=== PATIENT | female | born 1990 | race Caucasian/White ===

== ENCOUNTER 2018-01-12 13:37 | Outpatient (CLI) | payer SELFPAY ==
[2018-01-12 14:22] LABS: HCT 36.1 % (36.0-46.0); HGB 12.5 g/dL (12.0-15.5); Mean Corp. HGB Concentration 34.6 g/dL (32.0-36.0); Mean Corpuscular Hemoglobin 29.1 pg (27.0-33.0); Mean Corpuscular Volume 84.1 fL (80-95); Mean Platelet Volume 9.4 fL (8.0-11.0); Platelet Count 344 x1000/uL (130-400); RBC 4.29 m/cumm (4.00-5.20); RBC Distribution Width 12.7 % (11.7-14.6); White Blood Cell Count 14.83 k/cumm (4.4-10.8)
[2018-01-12 15:03] LABS: ALT 15 U/L (12-78); AST 16 U/L (15-37); Albumin 3.8 g/dL (3.4-5.0); Alkaline Phosphatase 66 U/L (46-116); Anion Gap 11.3 mmol/L (3-11); BUN 7 mg/dL (7-18); Bilirubin, Total 0.4 mg/dL (0.2-1.0); CO2 23.7 mmol/L (21.0-32.0); CREATININE 0.71 mg/dL (0.55-1.02); Calcium 8.9 mg/dL (8.5-10.1); Chloride 101 mmol/L (98-107); Glucose 88 mg/dL (70-100); Potassium 3.8 mmol/L (3.5-5.1); Sodium 136 mmol/L (136-145); Total Protein 6.8 g/dL (6.4-8.2)
== END 2018-01-12 13:57 ==
PROVIDERS: Visit Provider Nurse Practitioner Women's Health
DX: O21.9 Vomiting of pregnancy, unspecified (principal)
CPT/HCPCS: 36415; 80053; 85027; 84702

== ENCOUNTER 2018-02-13 15:05 | Outpatient (CLI) | payer OTHER, SELFPAY ==
[2018-02-13 15:39] LABS: Abs Immature Grans 0.05 k/cumm (0.0-0.09); Absolute Eosinophil Count 0.09 k/cumm (0.0-0.7); Absolute Monocyte Count 0.75 k/cumm (0.11-0.7); Absolute Neutrophil Count 12.65 k/cumm (1.2-6.7); Basophils % 0.3; Eosinophils % 0.6; HCT 33.8 % (36.0-46.0); Immature Grans % 0.3; Lymphocytes % 13.3; Mean Corp. HGB Concentration 35.5 g/dL (32.0-36.0); Mean Corpuscular Hemoglobin 29.5 pg (27.0-33.0); Mean Platelet Volume 9.2 fL (8.0-11.0); Monocytes % 4.8; Neutrophils % 80.7; Platelet Count 333 x1000/uL (130-400); RBC 4.07 m/cumm (4.00-5.20); RBC Distribution Width 12.9 % (11.7-14.6); White Blood Cell Count 15.67 k/cumm (4.4-10.8)
[2018-02-13 15:53] LABS: Absolute Basophil Count 0.05 k/cumm (0.0-0.2); Absolute Lymphocyte Count 2.08 k/cumm (1.2-3.4)
[2018-02-13 17:07] LABS: TSH (W/Ref FT4) 1.84 uIU/mL (0.358-3.74)
[2018-02-14 11:46] LABS: Hepatitis B Surface Ag Negative (NEGAT); Hepatitis C Ab w Rflx HCV PCR Negative (NEGAT)
[2018-02-14 11:48] LABS: HIV-1/2 Ag & Ab Screen Negative (NEGAT)
[2018-02-14 13:23] LABS: Rubella IgG Ab (UVM) Positive; Varicella IgG Antibody Positive
[2018-02-14 13:55] LABS: Syphilis Serology (RPR) Negative (Negative)
[2018-02-14 15:19] LABS: Toxoplasma Ab, IgG Negative (Negative); Toxoplasma Ab, IgM Negative (Negative); Toxoplasma IgG Value <3 IU/mL
== END 2018-02-13 15:25 ==
PROVIDERS: Visit Provider Advanced Practice Midwife
DX: Z34.91 Encounter for supervision of normal pregnancy, unspecified, first trimester (principal); Z11.3 Encounter for screening for infections with a predominantly sexual mode of transmission; Z11.59 Encounter for screening for other viral diseases; Z11.4 Encounter for screening for human immunodeficiency virus [HIV]; Z01.84 Encounter for antibody response examination
CPT/HCPCS: 36415; 80055; 80307; 86787; 86803; 86850; 86900; 86901; 87340; 87389; 87491; 87591; 84443; 86592; 86762; 86777; 86778; 87086

== ENCOUNTER 2018-02-13 17:07 | Outpatient (REF) | payer OTHER, SELFPAY ==
--- NOTE | 2018-02-13 14:45 | PAPFT_PTH ---
PATIENT: Alma Hernandez LOC: [facility] U#:[id number] AGE/SX: 27/F ROOM: RE02/13/[address]: Alonso Frost RN : 1990 BED: DIS: 02/13/2018 SPEC #: [id number] RECD: 02/13/18 17:58 STATUS: AMIRA REQ #: [id number] JARROD: 02/13/18 14:[address]: Alonso Frost DEPT: [facility] Cytology RECD BY: Jayshree Polo ENTERED: 02/13/18 17:58 SP TYPE: PAPFT OT DR: Phylicia Local Tissues: 1 - CX/ENDOCX FOR PAP SMEARS Procedures: PAP THIN PREP/UVM Screening HPV DNA PROBE Comments: [id number]
[2018-02-13 17:42] LABS: *AMPHETAMINES SCREEN URINE Negative (Negative); *BARBITURATES SCREEN URINE Negative (Negative); *BENZODIAZEPINES SCREEN URINE Negative (Negative); Cannabinoids THC Negative (Negative); Cocaine Screen,Urine Negative (Negative); METHADONE URINE SCREEN Negative (Negative); OPIATES URINE SCREEN Negative (Negative)
[2018-02-13 17:51] LABS: Tricyclic Antidepressants Negative (Negative)
[2018-02-15 13:57] LABS: Chlamydia Result Negative; GC Result Negative; Specimen Description CERVIX
[2018-02-17 08:11] LABS: Buprenorphine Negative; Norbuprenorphine Negative
== END 2018-02-13 17:27 ==
LOC: LBN 17:07
PROVIDERS: Visit Provider Advanced Practice Midwife
DX: Z34.91 Encounter for supervision of normal pregnancy, unspecified, first trimester (principal); Z11.3 Encounter for screening for infections with a predominantly sexual mode of transmission; Z12.4 Encounter for screening for malignant neoplasm of cervix; Z11.51 Encounter for screening for human papillomavirus (HPV)
CPT/HCPCS: 80307; 87491; 87591; 88142; 87086; 87624

== ENCOUNTER 2018-02-19 00:39 | Outpatient (CLI) | payer SELFPAY ==
--- NOTE | 2018-02-19 15:34 | DI.US_ITS ---
Many abnormalities cannot be diagnosed. A normal exam does not exclude a congenital anomaly. Radiology No. LMP: Exam Date: 02/19/18 [facility] wks days on EDC ([facility]) 08/18/18 Confirmed: HISTORY: DATING, Z34.90 ---- PREDICTED GESTATIONAL AGE NUMBER 14.2 weeks with a range of 13.2 week to 15.2 weeks. 1 Determined by___1STUS___LMP___HISTORY Info. pertaining to fetus # PLACENTA PRESENTATION Grade 0-1 Cephalic___ Anterior___Posterior___ Breech____ Right Left Transverse(head right___ Fundal___Low-lying___Previa___ Transverse(head left___ Varying___X___ BIOMETRY AMNIOTIC FLUID BPD: 27 mm 14.6 weeks Normal HC: 104 mm 14.6 weeks AC: 88 mm 15.0 weeks FL: 16 mm 14.5 weeks AMNIOTIC FLUID INDEX >26 WK CRL: mm weeks Cisterna Magna: mm CI: RUQ: LUQ Cerebellum: cm EFW: grams Percentile RLQ: LLQ Total: cms Composite AGE= 14.6 wks EDC by ____08/14/2018 BIOPHYSICAL PROFILE ANATOMY IDENTIFIED SCORE 0/2 Heart: 4-Chamber___Rate:BPM__165___ LVOT: RVOT: Amniotic Fluid(>2cms)____ Stomach: Kidneys: Respirations (>30 secs) Bladder: Post. Fossa: Body Flex/Extension 3 vessel cord: Ventricles: cord insertion: Lips:____ Extremity Flex/Extension spinal morphology: Nose: Total Score= Palate: NS=not seen There is a single intrauterine gestation in variable position. The placenta is posterior. The biometric measurements correspond to 14 weeks 6 days. There is a normal quantity of amniotic fluid. IMPRESSION: Living intrauterine gestation of 14 weeks 6 days.
== END 2018-02-19 00:59 ==
PROVIDERS: Visit Provider Advanced Practice Midwife
DX: Z34.91 Encounter for supervision of normal pregnancy, unspecified, first trimester (principal)
CPT/HCPCS: 76801

== ENCOUNTER 2018-03-30 00:21 | Outpatient (CLI) | payer SELFPAY ==
--- NOTE | 2018-03-30 13:42 | DI.US_ITS ---
SYMPTOM/DIAGNOSIS: 18 WK ULTRASOUND, Z34.90 OB ULTRASOUND: Routine examination was performed. There is a single living intrauterine gestation. Estimated sonographic age is 19 weeks 6 days. No or placental abnormalities are identified. IMPRESSION: Single living intrauterine gestation. Estimated sonographic age is 19 weeks 6 days. Many abnormalities cannot be diagnosed. A normal exam does not exclude a congenital anomaly. Radiology No. [id number] LMP: Exam Date: 03/30/18 [facility] wks days on EDC ([facility]) 08/17/18 Confirmed: HISTORY: SURVEY ---- PREDICTED GESTATIONAL AGE NUMBER 20 +0 weeks with a range of 19 +0 week to 21 +0 weeks. 1 Determined by_XX__1STUS___LMP___HISTORY Info. pertaining to fetus # PLACENTA PRESENTATION Grade 1 Cephalic___ Anterior___Posterior__XX_ Breech____ Right Left Transverse(head right___ Fundal___Low-lying___Previa___ Transverse(head left___ Varying__X____ BIOMETRY AMNIOTIC FLUID BPD: 47 mm 20 +1 weeks Normal HC: 175 mm 20 +0 weeks AC: 142 mm 19 +4 weeks FL: 32 mm 19 +6 weeks AMNIOTIC FLUID INDEX >26 WK CRL: mm weeks Cisterna Magna: 4 mm CI: 83.6 RUQ: LUQ Cerebellum: 2.0 cm EFW: 309 grams Percentile RLQ: LLQ Total: cms Composite AGE= 19 +6 wks EDC by US___08/18/18 BIOPHYSICAL PROFILE ANATOMY IDENTIFIED SCORE 0/2 Heart: 4-Chamber__X_Rate:BPM__152___ LVOT: X RVOT:___X Amniotic Fluid(>2cms)____ Stomach:___X____ Kidneys:___X____ Respirations (>30 secs) Bladder: X___ Post. Fossa:___X Body Flex/Extension 3 vessel cord:__X Ventricles:____X cord insertion:__X___ Lips:__X__ Extremity Flex/Extension spinal morphology:__X Nose:X Total Score= Palate:_X NS=not seen
== END 2018-03-30 00:41 ==
PROVIDERS: Visit Provider Nurse Practitioner
DX: Z34.92 Encounter for supervision of normal pregnancy, unspecified, second trimester (principal)
CPT/HCPCS: 76805

== ENCOUNTER 2018-05-31 14:56 | Outpatient (CLI) | payer OTHER, SELFPAY ==
[2018-05-31 15:21] LABS: HCT 33.2 % (36.0-46.0); HGB 11.3 g/dL (12.0-15.5); Mean Corpuscular Hemoglobin 29.9 pg (27.0-33.0); Mean Corpuscular Volume 87.8 fL (80-95); Mean Platelet Volume 9.1 fL (8.0-11.0); Platelet Count 345 x1000/uL (130-400); RBC 3.78 m/cumm (4.00-5.20); RBC Distribution Width 13.2 % (11.7-14.6); White Blood Cell Count 18.49 k/cumm (4.4-10.8)
[2018-05-31 15:27] LABS: Glucose,1 Hr (Glucola) 179 mg/dL (80-140)
== END 2018-05-31 15:16 ==
PROVIDERS: Visit Provider Advanced Practice Midwife
DX: Z34.93 Encounter for supervision of normal pregnancy, unspecified, third trimester (principal)
CPT/HCPCS: 36415; 82950; 85027

== ENCOUNTER 2018-06-04 00:38 | Outpatient (CLI) | payer OTHER, SELFPAY ==
--- NOTE | 2018-06-04 13:29 | DI.US_ITS ---
Many abnormalities cannot be diagnosed. A normal exam does not exclude a congenital anomaly. Radiology No. LMP: Exam Date: 06/04/18 [facility] 14 wks 2 days on 02/19/18 EDC ([facility]) 08/18/18 Confirmed: HISTORY: SIZE LESS THAN DATES, POSTCOITAL BLEEDING, VISUALIZE PLACENTA, O2.849 PREDICTED GESTATIONAL AGE NUMBER 29.3 weeks with a range of 28.3 week to 30.3weeks. 1 Determined by_X__1STUS___LMP___HISTORY Info. pertaining to fetus # PLACENTA PRESENTATION Grade I-11 Cephalic__X_ Anterior___Posterior_X__ Breech____ Right Left Transverse(head right___ Fundal___Low-lying___Previa___ Transverse(head left___ Varying BIOMETRY AMNIOTIC FLUID BPD: 73 mm 29.2 weeks Normal HC: 278 mm 30.2 weeks AC: 299 mm 29.1 weeks FL: 54 mm 28.5 weeks AMNIOTIC FLUID INDEX >26 WK CRL: mm weeks Cisterna Magna: mm CI: RUQ: LUQ Cerebellum: cm EFW: 1341 grams 31st Percentile RLQ: LLQ Total: cms Composite AGE= 29.3 wks EDC by 08/17/18____ BIOPHYSICAL PROFILE ANATOMY IDENTIFIED SCORE 0/2 Heart: 4-Chamber_X__Rate:BPM__147___ LVOT: RVOT: Amniotic Fluid(>2cms)____ Stomach: Kidneys: Respirations (>30 secs) Bladder: Post. Fossa: Body Flex/Extension 3 vessel cord:__X Ventricles: cord insertion: Lips:____ Extremity Flex/Extension spinal morphology: Nose: Total Score= Palate: NS=not seen The placenta is posterior. The fetus is in the cephalic position. The biometric measurements correspond to 29 weeks 3 days. The estimated weight is 1341 grams corresponding to the 31st percentile. The amniotic fluid amount appears normal at 12.1. IMPRESSION: size and weight are within the expected range.
== END 2018-06-04 00:58 ==
PROVIDERS: Visit Provider Advanced Practice Midwife
DX: O26.843 Uterine size-date discrepancy, third trimester (principal); N93.0 Postcoital and contact bleeding; Z34.93 Encounter for supervision of normal pregnancy, unspecified, third trimester
CPT/HCPCS: 76816

== ENCOUNTER 2018-06-04 08:22 | Outpatient (CLI) | payer OTHER, SELFPAY ==
[2018-06-04 10:26] LABS: Glucose 1 Hour 162 mg/dL
[2018-06-04 12:51] LABS: Glucose 3 Hour 92 mg/dL
== END 2018-06-04 08:42 ==
PROVIDERS: Visit Provider Advanced Practice Midwife
DX: Z34.93 Encounter for supervision of normal pregnancy, unspecified, third trimester (principal)
CPT/HCPCS: 36410; 82951

== ENCOUNTER 2018-06-14 14:51 | Outpatient (REF) | payer OTHER, SELFPAY ==
[2018-06-18 13:56] LABS: Chlamydia Result Negative; GC Result Negative; Specimen Description URINE
== END 2018-06-14 15:11 ==
LOC: LBN 14:51
PROVIDERS: Visit Provider Advanced Practice Midwife
DX: Z34.93 Encounter for supervision of normal pregnancy, unspecified, third trimester (principal); Z11.3 Encounter for screening for infections with a predominantly sexual mode of transmission
CPT/HCPCS: 87491; 87591

== ENCOUNTER 2018-06-27 11:04 | Outpatient (CLI) | payer OTHER, SELFPAY | END 2018-06-27 11:24 | PROVIDERS: Visit Provider Advanced Practice Midwife | DX: N89.8 Other specified noninflammatory disorders of vagina (principal) | CPT/HCPCS: 87480; 87510; 87660 ==

== ENCOUNTER 2018-06-27 14:44 | Outpatient (REF) | payer OTHER, SELFPAY | END 2018-06-27 15:04 | LOC: LBN 14:44 | PROVIDERS: Visit Provider Advanced Practice Midwife | DX: N89.8 Other specified noninflammatory disorders of vagina (principal) | CPT/HCPCS: 87480; 87510; 87660 ==

== ENCOUNTER 2018-07-20 11:48 | Inpatient (IN) | payer OTHER, SELFPAY ==
[2018-07-20 14:51] LABS: HCT 32.9 % (36.0-46.0); HGB 11.5 g/dL (12.0-15.5); Mean Corpuscular Hemoglobin 29.8 pg (27.0-33.0); Mean Corpuscular Volume 85.2 fL (80-95); Mean Platelet Volume 9.5 fL (8.0-11.0); Platelet Count 349 x1000/uL (130-400); RBC 3.86 m/cumm (4.00-5.20); RBC Distribution Width 12.7 % (11.7-14.6); White Blood Cell Count 21.09 k/cumm (4.4-10.8)
[2018-07-20] MEDS: Lactated Ringers 1,000 ML 150 ML IV ×2 (15:55→22:26)
[2018-07-21] MEDS: Oxytocin 10 UNITS/ML VIAL IM (05:30)
[2018-07-21] MEDS: Hamamelis Leaf/Glycerin 100 EACH BOX PR (08:19)
[2018-07-21] MEDS: Ibuprofen 600 MG TAB PO (20:06)
[2018-07-22 06:39] LABS: HCT 28.3 % (36.0-46.0); HGB 9.7 g/dL (12.0-15.5); Mean Corp. HGB Concentration 34.3 g/dL (32.0-36.0); Mean Corpuscular Hemoglobin 29.5 pg (27.0-33.0); Mean Platelet Volume 9.7 fL (8.0-11.0); Platelet Count 294 x1000/uL (130-400); RBC 3.29 m/cumm (4.00-5.20); RBC Distribution Width 12.9 % (11.7-14.6); White Blood Cell Count 20.63 k/cumm (4.4-10.8)
[2018-07-22] MEDS: Ibuprofen 600 MG TAB PO (12:09)
[2018-07-22 18:31] LABS: Absolute Basophil Count 0.06 k/cumm (0.0-0.2); Absolute Eosinophil Count 0.27 k/cumm (0.0-0.7); Absolute Lymphocyte Count 2.99 k/cumm (1.2-3.4); Absolute Monocyte Count 1.13 k/cumm (0.11-0.7); Absolute Neutrophil Count 14.88 k/cumm (1.2-6.7); Basophils % 0.3; Eosinophils % 1.4; HCT 29.7 % (36.0-46.0); Lymphocytes % 15.3; Mean Corp. HGB Concentration 33.7 g/dL (32.0-36.0); Mean Corpuscular Hemoglobin 29.4 pg (27.0-33.0); Mean Corpuscular Volume 87.4 fL (80-95); Mean Platelet Volume 9.5 fL (8.0-11.0); Monocytes % 5.8; Neutrophils % 76.2; Platelet Count 331 x1000/uL (130-400); White Blood Cell Count 19.53 k/cumm (4.4-10.8)
[2018-07-23] MEDS: Docusate Sodium 100 MG CAP PO (17:47)
--- NOTE | 2018-07-23 18:33 | PDOC.CMPRO ---
- If Service Date Differs Date of service: 07/23/18 Time of Service: 18:34 Care Management Progress Note Background and assessment: Alma is a 28 year old female admitted to OB Para 1, 2 days . CM is called to the OB unit to complete a safety plan after mental health evaluation for suicidal ideation. Per report Pt expressed thought of suicidal ideation today to multiple providers. Pt has met with Nellie HOOD today and at previous visits. Per Nellie's note Pt has a history of unspecified depressive disorder, with symptoms of anxiety. Primary providers are concerned for Alma safety and called a huddle to discuss a safety plan and implementation of CPSO. CM requested [facility] assessment through crisis services to determine if patient is in need of psychiatric stabilization prior to discharge home with spouse and infant. Huddle participants include: Krystal Hobbs [facility] Elly Abrams CNM, Vangie Pham RN, DAVION Garcia, Aleyda Butler RN supervisor microfilm duplicating unit, SANA Medeiros and this typewriter assembly and parts inspector. CM also contacted Sabi Rodriguez RN Care Manager, Risk Management who was able to participate over the phone. Mental Health [facility] has met with patient and does not recommend inpatient treatment at this time. Team feels that the patient would be best supported with a one on one CPSO at all times. The team agrees including risk management that disturbing the environment and interrupting the natural bonding of family would not be supportive. Decision was made to implement a CPSO with direct supervision present at all times. The team has determined this safety intervention would benefit the patient and family as a whole and maintain the bonding of patient and family. [facility] will plan to follow up with the patient in the morning states she will be here at 0830. Nellie Murillo will also continue to support the patient while she remains as a patient and as an outpatient. CM to contacted to follow up with Elly Gomez CNM f/u will include med recommendations and management as well as assessment. CM contacted by email and will request that JOSE place a consult in EMR to also notify physician of consult. Patient will have direct observation at all times by Female CPSO this includes when using the bathroom or showering. Equipment Service Associate will maintain the CPSO coverage throughout the evening and night. Alma will not be alone at anytime during her stay. Alma and her Spouse Reji aware of the safety plan being put in place and agree to the plan. Additional resources recommended include [facility] through Home Health which patient has agreed, to place a referral at the time of discharge. These orders should be faxed to [facility]. also faxed a referral to home health requesting support services through the program. SAFETY PLAN: 1.Alma may remain in her own clothing or hospital gown. 2. Will remain under direct supervision of CPSO trained HAND TACKER, PRETZEL COOKER certified solid waste facility operator at all times. 3. May have regular dishes and meal tray with CPSO observation at all times. 4. Follow [facility] Management of the Admitted Behavioral Health Patient policy. 5. Alma may shower and use the bathroom with direct supervision with CPSO or spouse at all times. 6. Alma may have her belongings in the room with no restrictions. 7. Visitors are patients discretion. 8. Phone contact is not limited. Safety plan has been established with patient, and care team, to adhere to patient goals, identify restrictions based on behavioral status, address nutrition, and determine allowed personal belongings, tools for hygiene and personal care. As well plan will determine level of activity including ambulation, level of supervision, visitors, and determine privileges based on level of acuity. In the event changes are needed in the plan please contact security operations specialist [facility] Care Management and Crisis [facility] at [phone].
--- NOTE | 2018-07-23 19:36 | CMPROGNOTE_ITS ---
- If Service Date Differs Date of service: 07/23/18 Time of Service: 18:34 Care Management Progress Note Background and assessment: Alma is a 28 year old female admitted to OB Para 1, 2 days . CM is called to the OB unit to complete a safety plan after mental health evaluation for suicidal ideation. Per report Pt expressed thought of suicidal ideation today to multiple providers. Pt has met with Nellie HOOD today and at previous visits. Per Nellie's note Pt has a history of unspecified depressive disorder, with symptoms of anxiety. Primary providers are concerned for Alma safety and called a huddle to discuss a safety plan and implementation of CPSO. CM requested [facility] assessment through crisis services to determine if patient is in need of psychiatric stabilization prior to discharge home with spouse and infant. Huddle participants include: Krystal Hobbs [facility] Elly Abrams CNM, Vangie Pham RN, DAVION Garcia, Aleyda Butler RN right of way supervisor, SANA Medeiros and this health underwriter. CM also contacted Sabi Rodriguez RN Care Manager, Risk Management who was able to participate over the phone. Mental Health [facility] has met with patient and does not recommend inpatient treatment at this time. Team feels that the patient would be best supported with a one on one CPSO at all times. The team agrees including risk management that disturbing the environment and interrupting the natural bonding of family would not be supportive. Decision was made to implement a CPSO with direct supervision present at all times. The team has determined this safety intervention would benefit the patient and family as a whole and maintain the bonding of patient an d family. [facility] will plan to follow up with the patient in the morning states she will be here at 0830. Nellie Murillo will also continue to support the patient while she remains as a patient and as an outpatient. CM to contacted to follow up with Elly Gomez CNM f/u will include med recommendations and management as well as assessment. CM contacted by email and will request that JOSE place a consult in EMR to also notify physician of consult. Patient will have direct observation at all times by Female CPSO this includes when using the bathroom or showering. Professor Of Forestry will maintain the CPSO coverage throughout the evening and night. Alma will not be alone at anytime during her stay. Alma and her Spouse Reji aware of the safety plan being put in place and agree to the plan. Additional resources recommended include [facility] through Home Health which patient has agreed, to place a referral at the time of infant discharge. These orders should be faxed to [facility]. also faxed a referral to home health requesting support services through the program. SAFETY PLAN: 1.Alma may remain in her own clothing or hospital gown. 2. Will remain under direct supervision of CPSO trained CURTAIN STITCHER, IMPORTER OR EXPORTER mellowing machine operator at all times. 3. May have regular dishes and meal tray with CPSO observation at all times. 4. Follow [facility] Management of the Admitted Behavioral Health Patient policy. 5. Alma may shower and use the bathroom with direct supervision with CPSO or spouse at all times. 6. Alma may have her belongings in the room with no restrictions. 7. Visitors are patients discretion. 8. Phone contact is not limited. Safety plan has been established with patient, and care team, to adhere to patient goals, identify restrictions based on behavioral status, address nutrition, and determine allowed personal belongings, tools for hygiene and personal care. As well plan will determine level of activity including ambulation, level of supervision, visitors, and determine privileges based on level of acuity. In the event changes are needed in the plan please contact acquisition associate [facility] Care Management and Crisis [facility] at [phone].
[2018-07-24] MEDS: Ibuprofen 600 MG TAB PO (06:07)
--- NOTE | 2018-07-24 09:55 | PDOC.MHCN ---
Date of service: 07/23/18 Time of Service: 17:56 Mental Health Crisis Note Presenting Issue How did you arrive at the ED and why did you come: Patient gave to her child 2 days ago and was born one month prematurely. Patient remains in the center with her son. Today, patient commented that she had thoughts of going into the bathroom and ending her life by hanging herself. The center social worker psychiatric contacts [facility] emergency services and requests an evaluation of patient. Precipitating Factors Patient admits to feeling overwhelmed and unprepared to bring her son home due to his being born earlier than expected. She admits to having made the suicidal comment and states that the thoughts come and go. She denies that she would act on the thoughts. Patient moved from [place] to the [facility] with her in December of 2016. She talks about the plan for them to move back to [place] in a couple of years. Disposition BEHAVIOR: Pleasant and cooperative. EYE CONTACT: Good. MOOD: Depressed. AFFECT: Flat. APPETITE: Good. SLEEP(trouble falling/staying asleep: Reported as good. Plan A huddle is held with center staff. Even though we will not be pursuing a psych hospitalization at this time, the decision is made to place a CPSO in the room through the night. Staff will arrange for Dr. Elisabet Hunter, psychiatrist, to meet with patient tomorrow to explore anti-depressant medication options. I will also check-in with patient in the morning to ensure she is maintaining. Signature Clinician's Name/Title: Krystal Lamas BA, [facility] [employer]
--- NOTE | 2018-07-24 10:21 | PDOC.MHCN_ITS ---
Date of service: 07/23/18 Time of Service: 17:56 Mental Health Crisis Note Presenting Issue How did you arrive at the ED and why did you come: Patient gave to her child 2 days ago and was born one month prematurely. Patient remains in the center with her son. Today, patient commented that she had thoughts of going into the bathroom and ending her life by hanging herself. The center social service agency director contacts [facility] emergency services and requests an evaluation of patient. Precipitating Factors Patient admits to feeling overwhelmed and unprepared to bring her son home due to his being born earlier than expected. She admits to having made the suicidal comment and states that the thoughts come and go. She denies that she would act on the thoughts. Patient moved from [place] to the [facility] with her in December of 2016. She talks about the plan for them to move back to [place] in a couple of years. Disposition BEHAVIOR: Pleasant and cooperative. EYE CONTACT: Good. MOOD: Depressed. AFFECT: Flat. APPETITE: Good. SLEEP(trouble falling/staying asleep: Reported as good. Plan A huddle is held with center staff. Even though we will not be pursuing a psych hospitalization at this time, the decision is made to place a CPSO in the room through the night. Staff will arrange for Dr. Elisabet Hunter, psychiatrist, to meet with patient tomorrow to explore anti-depressant medication options. I will also check-in with patient in the morning to ensure she is maintaining. Signature Clinician's Name/Title: Krystal Lamas BA, [facility] Motel Operator
--- NOTE | 2018-07-24 10:59 | PDOC.MHPN2 ---
Date of service: 07/24/18 Time of Service: 10:59 Mental Health Progress Note Progress Note: Presenting Issue: Patient remains at the center. This bond writer meets with patient today for a reassessment to ensure patient is maintaining. Precipitating Factors: Patient was assessed yesterday after making a suicidal statement and threatening to hang herself in the bathroom. Today, patient's mood is brighter. She reports doing better and denies current suicidal ideation. She continues to feel overwhelmed by the of her son and difficulties breast feeding but states she is looking forward to returning home with her son and . Patient's reports that she spoke with a cousin from [place] earlier today and this always cheers her up. Disposition * Behavior: Cooperative. *Eye Contact: Good. *Mood: Depressed. *Affect: Flat, guarded but may be due to cultural differences and language barriers, as patient is Malay and speaks limited Japanese. *Appetite: Good. *Sleep(troubel falling/staying asleep): Reports sleeping well last night. Plan(please elaborate and include that physician is consulted with plan and/or placement): Patient and her are provided with contact information for [facility] emergency services. Plan is for patient to meet with Dr. Elisabet Hunter, psychiatrist, this morning to explore medication options. Patient does not meet criteria for psychiatric hospitalization at this time. Clinician's Name , Title, and Signature Make sure that you are photocopying and submitting this to [facility] records Dept. to be scanned into chart.
--- NOTE | 2018-07-24 11:12 | MHPN_ITS ---
Date of service: 07/24/18 Time of Service: 10:59 Mental Health Progress Note Progress Note: Presenting Issue: Patient remains at the center. This principal technical writer meets with patient today for a reassessment to ensure patient is maintaining. Precipitating Factors: Patient was assessed yesterday after making a suicidal statement and threatening to hang herself in the bathroom. Today, patient's mood is brighter. She reports doing better and denies current suicidal ideation. She continues to feel overwhelmed by the of her son and difficulties breast feeding but states she is looking forward to returning home with her son and . Patient's reports that she spoke with a cousin from [place] earlier today and this always cheers her up. Disposition * Behavior: Cooperative. *Eye Contact: Good. *Mood: Depressed. *Affect: Flat, guarded but may be due to cultural differences and language barriers, as patient is Turkish and speaks limited Belarusian. *Appetite: Good. *Sleep(troubel falling/staying asleep): Reports sleeping well last night. Plan(please elaborate and include that physician is consulted with plan and/or placement): Patient and her are provided with contact information for [facility] emergency services. Plan is for patient to meet with Dr. Elisabet Hunter, psychiatrist, this morning to explore medication options. Patient does not meet criteria for psychiatric hospitalization at this time. Clinician's Name , Title, and Signature Make sure that you are photocopying and submitting this to [facility] records Dept. to be scanned into chart.
--- NOTE | 2018-07-24 13:14 | PSYCO_ITS ---
Date of service: 07/24/18 Time of Service: 12:14 History of Present Illness Narrative: Primary Care Provider: [facility] Referred by: Elly Gomez CNM Information source: Patient, chart, medical team. Reason for consult: Elly requested psychiatric consultation to evaluate for depression after crisis evaluated her for suicidal ideation and cleared her for returning home. History Of Present Illness: Patient is post day 4 with new boy born at 36 weeks. She expressed suicidal ideations and [facility] crisis and [facility] Care management were involved for evaluation of safety. After overnight direct observation by a sitter and second visit from Crisis, she was deemed not to be a risk to harm herself or others and this consultation was requested for further evaluation of depression. , Reji and baby Romeo were present in the room for this visit and this in terview was frequently interrupted with the normal needs of attending to the new baby and staff coming and going. Mood: Depressed reports being depressed all my life. Says 50 percent of the time she can feel maral and pleasure and the other time she feels sad and depressed. patient not able to say today the circumstances that trigger low mood. Currently her mood is not as depressed as her worst depressive state, nor is her mood the best it could be. She does not endorse any history of me dication for depression. Anxiety: She endorses being a worrier most of her life. She endorses physical symptoms of muscle tension, stomach aches, and feeling shaky when anxious. She says depression is more bothersome, more of a problem than anxiety. Psychosis/perceptual disturbances: she denies auditory or visual hallucinations, intrusive thoughts or bizarre thoughts. Sleep: Fine Substances: not reviewed this visit. Safety: - current suicidal/homicidal/violent ideations: none right now, recently felt suicidal prompting crisis evaluation. - guns in home or access to weapons: none PAST PSYCHIATRIC HISTORY: treatment history was not reviewed at this visit Family History: - mother with depression on medications she has reason to be depressed - in [place] - father: MH history not reviewed. - brother 2 years younger: MH history unknown Social history: - grew up in [place] - to Reji an palestinian and lives with Reji and his senior high school son locally. 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 REVIEW OF SYSTEMS: Constitutional: +fatigue Cardiovascular: No chest pains or dizziness Respiratory: no cough or shortness of breath Musculoskeletal: no weakness or trouble walking GI: No constipation, diarrhea, nausea, vomiting; appetite is fine Genitourinary: No dysuria, frequency of urination, hematuria +pain post delivery Neurological: No weakness, seizures, numbness, tics, ataxia Psych: see above Endocrine: No cold or heat intolerance, polyuria, excessive thirst Hem/Lymph: No bruising, bleeding Allergies: see chart MENTAL STATUS EXAM: Constitutional: appears healthy, stated age, sitting up on bed pumping breast milk. good eye contact Attitude: cooperative Psychomotor: no retardation or agitation Speech: few words, minimal spontaneous speech - likely partly due to language barrier, quiet volume. Heavily accented speech consistent with [place] as first language. Associations: no looseness Thought process: linear, logical, goal directed Thought content without psychosis, delusions, obsessions No suicidal or homicidal ideations Hallucinations denied Mood: depressed Affect: more anxious than depressed, smiles, also near tears appropriately Attention/Concentration: intact Judgment/insight: appears fair/fair but language barrier contributing to difficulty assessing Oriented x 4 Language: belgian not fluent but functionally pretty accurate Fund of knowledge appropriate to age and education Memory intact to recent and remote events Other cognitive testing: none Assessment and Plan (1) Depression: Current visit: Yes Status: Acute Nithin Hernandez is a 28 year old female with past history of depressive disorder who is post day 4 and just cleared by Crisis team for safety after a night of observation by sitter due to patient's expression of suicidal ideation. Psychiatric consultation was requested for more in-depth evaluation of depression and possible role of medications in treatment. History and clinical exam gathered today thus far is consistent with generalized anxiety disorder and depressive disorder unspecified. There is a question of whether trauma is related to her presentation but patient did not seem comfortable enough for me to ask her more questions along this line today. I will try to continue to evaluate. Depressive symptoms do not seem solely related to post- and she does not endorse any symptoms of psychosis. She is quite reticent to speak today, was distracted by baby's needs and by breast milk pumping. Reji was invited to be part of the conversation as he attended to the baby as well but he participated minimally. Patient agreed for me to visit again tomorrow. Safety: no heightened concerns for her safety to self or others in this setting of the hospital. I agree with discontinuation of increased observations for safety as she clearly states she is not currently suicidal and has not intent to harm. I will continue to assess her mood and discuss treatment with her tomorrow. I verbally communicated my findings with SACHA Amato immediately after inte rview. Qualifiers: Active/Remission status: Depression Type: unspecified Major depression episode severity: Major depression recurrence: Psychotic features: Trimester: Qualified Code(s): F32.9 - Major depressive disorder, single episode, unspecified (2) Generalized anxiety disorder: Current visit: Yes Status: Acute PFSH Female Reproductive History Menstrual Duration of menses: 3-5 days control method: none History History 1 Para 0 Hx # Term Pregnancies 0 Multiple births 0 Hx # Pregnancies 0 Ectopic pregnancies 0 AB induced 0 Hx Number of Living Children 0 AB spontaneous 0 Results Labs : 07/22/18 18:10
--- NOTE | 2018-07-25 09:35 | PSYCO_ITS ---
Date of service: 07/25/18 Time of Service: 08:45 History of Present Illness Narrative: Events since initial consultation/last note: Overnight events: none Medications: none While her baby was having a car seat challenge, I was able to interview patient alone in the next room. Subjective: Mood: easily mad not always in proportion to situation. Often keeps mood in but sometimes it comes out. This morning was very irritated with who was so nice to me. Her irritability bothers her. today her mood is okay. Lack of sleep makes her irritability worse. Currently she is feeling joyful about her baby as well as burdened. I didn't want to become yet. I wanted to wait until we were back in [place]. Anxiety: +worries. Is concerned about going home and dealing with the messy house. She thinks she is close to being a perfectionist but not quite. She is not more so than prior to or coming to the [place]. Trauma/stressors: she reports parents three years ago and she had to testify in court, the truth being in favor of her mother. Now father mad at her. She thinks father is angry that she moved to [place] and that she got . She does not get along with father. Reports that he was mean to her growing up but never physically harmful. She has bad dreams involving her father recently, especially while . She is concerned about her 's faithfulness, believes he cheated on her but he says he did not. She is concerned her will cheat on her in the future, maybe leave her. She reports that he is mean to her sometimes but has never physically harmed her. She sometimes slaps him when he says mean things but never hard to leave a cedric. Her only social contacts here in the [place] are her in-laws, some of whom she says are mean. She denies intrusive thoughts or other nightmares. She endorses mild hype rarousal and hypervigilance symptoms. History of self-harm: denies ever having a suicide attempt but endorses self- harm by cutting when she was 14 years old. She currently is future oriented, denies any suicidal ideation last night or today. Psychiatric history: - never hospitalization - never psychotropic medications and does not want to take any now. She states, How about I just get home and see how things go. Because her mother was prescribed antidepressants and seemed to be different on them, she is afraid to try them herself. - has seen a psychologist as a child and again in recent years in [place] but didn't find it helpful. She is open to having a counselor in the [place] and also states friends and family in [place] are supportive. - REVIEW OF SYSTEMS: Constitutional: +fatigue related to reduced sleep Musculoskeletal/neuro: +feeling of swollen legs which cause some pain Psych: see above MENTAL STATUS EXAM: Constitutional: appears healthy, stated age, walking around in robe. Attitude: cooperative Psychomotor: no retardation or agitation Speech: non-pressured, normal volume and prosody. More spontaneous speech today when alone with me. No articulation problems noted. Associations: no looseness Thought process: linear, logical, goal directed Thought content without psychosis, delusions, obsessions No suicidal or homicidal ideations Hallucinations denied Mood: okay looking forward to going home Affect: full, anxious, can laugh, easily tearful appropriately around topic of father. Attention/Concentration: intact Judgment/insight: fair/fair Oriented x 4 Language appropriate to age and education Fund of knowledge appropriate to age and education Memory intact to recent and remote events Other cognitive testing: none Assessment and Plan (1) Generalized anxiety disorder: Current visit: Yes Status: Acute Alma Hernandez is a 28 year old female with past history of depressive disorder who is post day 4 and just cleared by Crisis team for safety after a night of observation by sitter due to patient's expression of suicidal ideation. Psychiatric consultation was requested for more in-depth evaluation of depression and possible role of medications in treatment. History and clinical exam are consistent still with Generalized Anxiety Disorder and depressive disorder unspecified. She has features of chronic stress but symptoms do not appear to meet criteria for Posttraumatic Stress Disorder. She does not appear to have symptoms specific for depression and she does not in fact appear depressed so much as anxious and stressed and at time sad about real life events. While she would possibly benefit from a trial of an SSRI to manage physical anxiety symptoms and irritable mood related to anxiety, she declines to try medication at this time, preferring to see how she feels once she returns home locally. I spent considerable time providing psychoeducation about depression and psychosis and symptoms to look for there, about trauma and the b jessie, and how daily relaxation can help calm the body, and that she should feel free to talk with her providers at [facility] and to her son's industrial arts public school teacher at [facility] if she has any concerns about worsening symptoms or reduced ability to cope at home. She expressed openness to continue to talk with behavioral health through [facility]. Recommendations: - no medication at this time per patient preference. Should she change her mind, I recommend that she trial sertraline 25mg daily x 6-8 doses then increase to 50mg daily and hold for 4 weeks. If tolerating well but still with mood and anxiety symptoms, then continue to titrate by 50mg up to as high as 150-200mg as necessary. - she has seen a provider at [facility] in the past (less than one year ago) for an ear infection but has not otherwise made a primary care connection. One treatment resource for her could be connecting with psychiatric nurse practitioner through that practice. - I recommend that she follow up with [facility] in one week to check on emotional functioning given the stressors between she and her and her risk for worsening mood and anxiety impacting care of the baby. Safety: she again denies any suicidal ideation, is future oriented, and expresses intent to follow up with treatment plans, thus she does not appear to be at heightened risk for self-harm or harm to others at this time. I verbally discussed my findings with the OB team immediately after interview and stated no barriers to discharge from a mental health standpoint. Please let me know if I can be of further assistance with Ms. Hernandez's care. (2) Depression: Current visit: Yes Status: Acute Qualifiers: Active/Remission status: Depression Type: unspecified Major depression episode severity: Major depression recurrence: Psychotic features: Trimester: Qualified Code(s): F32.9 - Major depressive disorder, single episode, unspecified PFSH Female Reproductive History Menstrual Duration of menses: 3-5 days control method: none History History 1 Para 0 Hx # Term Pregnancies 0 Multiple births 0 Hx # Pregnancies 0 Ectopic pregnancies 0 AB induced 0 Hx Number of Living Children 0 AB spontaneous 0 Results Labs : 07/22/18 18:10
== END 2018-07-25 15:30 | disposition home or self-care (01) | DRG 806 ==
PROVIDERS: Admitting Provider Advanced Practice Midwife; Visit Provider Advanced Practice Midwife
DX: O60.14X0 Preterm labor third trimester with preterm delivery third trimester, not applicable or unspecified (principal); R45.851 Suicidal ideations; Z37.0 Single live birth; O62.1 Secondary uterine inertia; Z3A.35 35 weeks gestation of pregnancy; O75.81 Maternal exhaustion complicating labor and delivery; O70.0 First degree perineal laceration during delivery; O99.345 Other mental disorders complicating the puerperium; F53.0 Postpartum depression; O90.6 Postpartum mood disturbance; F41.1 Generalized anxiety disorder; F32.9 Major depressive disorder, single episode, unspecified; Z63.0 Problems in relationship with spouse or partner; Z63.8 Other specified problems related to primary support group
CPT/HCPCS: 36415; 85027; 86850; 86900; 86901; 99253; 99254; 85025; 87081; G0378; J2540; J2590

== ENCOUNTER 2018-09-07 16:38 | Outpatient (REF) | payer OTHER, SELFPAY ==
--- NOTE | 2018-09-07 15:45 | PAPFT_PTH ---
PATIENT: Alma Hernandez LOC: [facility] U#:[id number] AGE/SX: 28/F ROOM: RE09/07/[address]: Alonso Frost RN : 1990 BED: DIS: 09/07/2018 SPEC #: [id number] RECD: 09/07/18 17:58 STATUS: AMIRA REEliot #: [id number] JARROD: 09/07/18 15:[address]: Alonso Frost DEPT: [facility] Cytology RECD BY: Jayshree Polo ENTERED: 09/07/18 17:58 SP TYPE: PAPFT OT DR: Magnolia Tissues: 1 - CX/ENDOCX FOR PAP SMEARS Procedures: PAP THIN PREP/[facility] Screening Comments: [id number]
[2018-09-10 15:22] LABS: Chlamydia Result Negative; GC Result Negative
== END 2018-09-07 16:58 ==
LOC: LBN 16:38
PROVIDERS: Visit Provider Advanced Practice Midwife
DX: Z34.91 Encounter for supervision of normal pregnancy, unspecified, first trimester (principal); Z11.3 Encounter for screening for infections with a predominantly sexual mode of transmission; Z12.4 Encounter for screening for malignant neoplasm of cervix
CPT/HCPCS: 87491; 87591; 88142

== ENCOUNTER 2019-01-09 00:47 | Outpatient (CLI) | payer OTHER, SELFPAY ==
--- NOTE | 2019-01-09 14:09 | DI.US_ITS ---
SYMPTOMS/DIAGNOSIS: ABNORMAL VAGINAL BLEEDING, CHECK PARAGARD IUD POSITION, Z97.5, N93.9 PELVIC ULTRASOUND: Transabdominal exam was performed. The uterus measures 7 x 3.2 x 5.5 cm. An IUD is seen within the endometrium and appears appropriately positioned. There is a 1.9 cm dominant follicle of the right ovary. The left ovary shows a few small follicles. No free fluid or hydronephrosis is seen. IMPRESSION: IUD appears appropriately positioned within the endometrium.
== END 2019-01-09 01:07 ==
PROVIDERS: Visit Provider Advanced Practice Midwife
DX: N93.9 Abnormal uterine and vaginal bleeding, unspecified (principal); Z30.431 Encounter for routine checking of intrauterine contraceptive device
CPT/HCPCS: 76856

== ENCOUNTER 2019-01-18 12:40 | Outpatient (CLI) | payer OTHER, SELFPAY ==
[2019-01-22 14:49] LABS: Testosterone, Free 0.35 ng/dL (0.06-1.06); Testosterone, Total 35 ng/dL (8-60)
== END 2019-01-18 13:00 ==
PROVIDERS: Visit Provider Advanced Practice Midwife
DX: N92.6 Irregular menstruation, unspecified (principal)
CPT/HCPCS: 36415; 84402; 84403

== ENCOUNTER 2019-08-23 18:10 | Outpatient (REF) | payer OTHER, SELFPAY ==
[2019-08-26 15:12] LABS: Chlamydia Result Negative (Negative); GC Result Negative (Negative)
== END 2019-08-23 18:30 ==
LOC: LBN 18:10
PROVIDERS: Visit Provider Nurse Practitioner Family
DX: Z11.3 Encounter for screening for infections with a predominantly sexual mode of transmission (principal)
CPT/HCPCS: 87491; 87591

== ENCOUNTER 2020-09-29 15:12 | Outpatient (REF) | payer MEDICAID, SELFPAY ==
--- NOTE | 2020-09-29 15:00 | PAPFT_PTH ---
PATIENT: Alma Hernandez LOC: [facility] U#:[id number] AGE/SX: 30/F ROOM: RE09/29/[address]: ELSI Diallo : 1990 BED: DIS: 09/29/2020 SPEC #: [id number] RECD: 09/29/20 17:31 STATUS: AMIRA REQ #: [id number] JARROD: 09/29/20 15:[address]: Airam Seaman DEPT: [facility] Cytology RECD BY: Jayshree Polo ENTERED: 09/29/20 17:32 SP TYPE: PAPFT OTHR DR: La Marshall APRN Tissues: 1 - CX/ENDOCX FOR PAP SMEARS Procedures: PAP THIN PREP/[facility]VM Screening Comments: [id number]
== END 2020-09-29 15:13 | disposition home or self-care (01) ==
LOC: LBN 15:12
PROVIDERS: Visit Provider Nurse Practitioner Family
DX: Z12.4 Encounter for screening for malignant neoplasm of cervix (principal)
CPT/HCPCS: 88142

== ENCOUNTER 2021-10-12 16:11 | Outpatient (REF) | payer MEDICAID, SELFPAY ==
--- NOTE | 2021-10-12 15:45 | PAPFT_PTH ---
PATIENT: Alma Hernandez LOC: [facility] U#:[id number] AGE/SX: 31/F ROOM: RE10/12/[address]: Ivonne Krishnan NP : 1990 BED: DIS: 10/12/2021 SPEC #: [id number] RECD: 10/12/21 17:21 STATUS: AMIRA REQ #: [id number] JARROD: 10/12/21 15:[address]: Ivonne Krishnan NP DEPT: [facility] Cytology RECD BY: Jayshree Polo ENTERED: 10/12/21 17:21 SP TYPE: PAPFT OTHR DR: La Marshall APRN Tissues: 1 - CX/ENDOCX FOR PAP SMEARS Procedures: PAP THIN PREP/UVM Screening HPV DNA PROBE Comments: [id number]
== END 2021-10-12 16:12 | disposition home or self-care (01) ==
LOC: LBN 16:11
PROVIDERS: Visit Provider Nurse Practitioner Women's Health
DX: Z12.4 Encounter for screening for malignant neoplasm of cervix (principal); Z11.51 Encounter for screening for human papillomavirus (HPV); R87.810 Cervical high risk human papillomavirus (HPV) DNA test positive
CPT/HCPCS: 88142; 87624

== ENCOUNTER 2022-10-17 10:15 | Outpatient (REF) | payer MEDICAID, SELFPAY ==
--- NOTE | 2022-10-17 09:50 | PAPFT_PTH ---
PATIENT: Alma Hernandez LOC: [facility] U#:[id number] AGE/SX: 32/F ROOM: RE10/17/[address]: Ivonne Krishnan NP : 1990 BED: DIS: 10/17/2022 SPEC #: [id number] RECD: 10/17/22 12:52 STATUS: AMIRA REQ #: [id number] JARROD: 10/17/22 09:[address]: Ivnone Krishnan NP DEPT: [facility] Cytology RECD BY: Jayshree Polo ENTERED: 10/17/22 12:52 SP TYPE: PAPFT OTHR DR: Saman Leigh DNP Tissues: 1 - CX/ENDOCX FOR PAP SMEARS Procedures: PAP THIN PREP/UVM Screening HPV DNA PROBE Comments: [id number]
== END 2022-10-17 10:16 | disposition home or self-care (01) ==
LOC: LBN 10:15
PROVIDERS: PCP Nurse Practitioner Family; Visit Provider Nurse Practitioner Women's Health
DX: R87.610 Atypical squamous cells of undetermined significance on cytologic smear of cervix (ASC-US) (principal)
CPT/HCPCS: 88142; 87624

== ENCOUNTER 2022-12-02 16:18 | Outpatient (REF) | payer MEDICAID, SELFPAY ==
--- NOTE | 2022-12-02 15:30 | ENDO_PTH ---
PATIENT: Alma Hernandez LOC: [facility] U#:[id number] AGE/SX: 32/F ROOM: RE12/02/[address]: Michelle Acosta DO : 1990 BED: DIS: 12/02/2022 SPEC #: [id number] RECD: 12/05/22 12:14 STATUS: AMIRA RElEiot #: [id number] JARROD: 12/02/22 15:[address]: Michelle Acosta DEPT: Surgical Specimen RECD BY: Jayshree Polo ENTERED: 12/05/22 12:15 SP TYPE: Endo OTHR DR: Saman Leigh DNP Tissues: 1 - ENDOCERVICAL BX/CURRETTE 2 - CERVICAL BIOPSY Procedures: GROSS AND MICRO LEVEL 4 SPECIAL STAIN 1 Comments: [id number]
== END 2022-12-02 16:19 | disposition home or self-care (01) ==
LOC: LBN 16:18
PROVIDERS: PCP Nurse Practitioner Family; Visit Provider Obstetrics & Gynecology
DX: R87.610 Atypical squamous cells of undetermined significance on cytologic smear of cervix (ASC-US) (principal); R87.810 Cervical high risk human papillomavirus (HPV) DNA test positive; N87.9 Dysplasia of cervix uteri, unspecified
CPT/HCPCS: 88305; 88312

== ENCOUNTER 2022-12-21 08:43 | Outpatient (CLI) | payer MEDICAID, SELFPAY ==
[2022-12-21 10:59] LABS: ESR < 1 mm/hr (0-20)
[2022-12-21 11:00] LABS: Abs Immature Grans 0.02 10^3/uL (0.0-0.06); Absolute Basophil Count 0.07 10^3/uL (0.0-0.2); Absolute Eosinophil Count 0.16 10^3/uL (0.0-0.7); Absolute Lymphocyte Count 2.06 10^3/uL (1.2-3.4); Absolute Monocyte Count 0.41 10^3/uL (0.1-0.8); Absolute Neutrophil Count 4.37 10^3/uL (1.2-6.7); Eosinophils % 2.3; HCT 39.2 % (36.0-46.0); HGB 13.1 g/dL (11.2-15.7); Immature Grans % 0.3; Lymphocytes % 29.1; MCH 29.3 pg (27.0-33.0); MCHC 33.4 % (32.0-36.0); MCV 88 fL (80-95); Monocytes % 5.8; Neutrophils % 61.5; Platelet Count 353 10^3/uL (130-400); RBC 4.47 10^6/uL (3.93-5.22); RDW 12.9 % (11.7-14.6); RDW-SD 41.6 fL; WBC 7.09 10^3/uL (4.4-10.8)
[2022-12-21 12:01] LABS: C-Reactive Protein < 0.05 mg/dL (0.0-0.3)
[2022-12-22 09:25] LABS: Cyclic Citrullinated Peptide <2.5 U/mL (<5.0)
[2022-12-22 11:01] LABS: Lyme Ab w Rflx to Lyme Confirm Negative (Negative)
[2022-12-22 15:07] LABS: ANA Interpretation Negative (Negative)
[2022-12-23 21:05] LABS: Anaplasma phagocytophilum Negative (Negative); B. miyamotoi PCR Negative (Negative); Babesia divergens/MO-1 Negative (Negative); Babesia duncani Negative (Negative); Babesia microti Negative (Negative); Ehrlichia chaffeensis Negative (Negative); Ehrlichia ewingii/canis Negative (Negative); Ehrlichia muris eauclairensis Negative (Negative)
== END 2022-12-21 08:44 | disposition home or self-care (01) ==
LOC: LOS 08:43
PROVIDERS: PCP Nurse Practitioner Family; Referring Provider Nurse Practitioner Family; Visit Provider Nurse Practitioner Family
DX: M25.561 Pain in right knee (principal); M25.562 Pain in left knee
CPT/HCPCS: 36415; 85652; 86200; 87798; 85025; 86038; 86140; 86618

== ENCOUNTER → 2022-12-22 01:26 | Outpatient (CLI) | payer MEDICAID, SELFPAY ==
--- NOTE | 2022-12-22 07:45 | DI.RAD_ITS ---
Exam(s) XR KNEE LT 3V AP,LAT,MARTIR EXAM: XR KNEE LT 3V AP,LAT,MARTIR CLINICAL HISTORY: increasing pain, swelling, redness,M25.562. TECHNIQUE: 2D digital imaging was performed of the left knee. Three images were obtained. AP, late ral and PA tunnel views were obtained. COMPARISON: No previous for comparison. FINDINGS: BONES: No acute fracture is present. No bony destructive lesion is seen. JOINTS: The knee is normally aligned. No joint effusion is seen. No loose body. SOFT TISSUE: Normal. IMPRESSION: Normal radiographs of the left knee. DATA REPOSITORY: RADIATION DOSE DELIVERED:
--- NOTE | 2022-12-22 07:45 | DI.RAD_ITS ---
Exam(s) XR KNEE RT 3V AP,LAT,MARTIR EXAM: XR KNEE RT 3V AP,LAT,MARTIR CLINICAL HISTORY: increasing pain, redness, swelling,M25.561. TECHNIQUE: 2D digital imaging was performed of the right knee. Three views obtained. Merchant, AP, l ateral and PA tunnel views were obtained. COMPARISON: No exams were available for comparison FINDINGS: BONES: No acute fracture is present. No bony destructive lesion is seen. JOINTS: The knee is normally aligned. No joint effusion is seen. SOFT TISSUE: Normal. IMPRESSION: Unremarkable radiographs of the right knee. DATA REPOSITORY: RADIATION DOSE DELIVERED:
== END ==
PROVIDERS: PCP Nurse Practitioner Family; Visit Provider Nurse Practitioner Family
DX: M25.561 Pain in right knee (principal); M25.562 Pain in left knee
CPT/HCPCS: 73562